=== PATIENT | male | born 1940 | race Caucasian/White ===

== ENCOUNTER → 2020-11-20 08:41 | Outpatient (BNVA) | payer MEDICARE, BC, SELFPAY | PROVIDERS: PCP Internal Medicine; Visit Provider Urology | DX: N40.1 Benign prostatic hyperplasia with lower urinary tract symptoms (principal); R35.1 Nocturia | CPT/HCPCS: 99212 ==

== ENCOUNTER → 2021-11-20 08:37 | Outpatient (BNVA) | payer MEDICARE, BC, SELFPAY | PROVIDERS: PCP Internal Medicine; Visit Provider Urology | DX: N40.1 Benign prostatic hyperplasia with lower urinary tract symptoms (principal); R35.1 Nocturia | CPT/HCPCS: 51798; 99212 ==

== ENCOUNTER 2022-11-16 10:59 | Outpatient (AMB) | payer MEDICARE, BC, SELFPAY ==
--- NOTE | 2022-11-16 11:11 | A.OFFVIS_ITS ---
Intake Intake Visit Reasons: 1Y PVR Intake Note: Patient is present for PVR Urology Med: Tamsulosin Antibiotic Allergy: Doxycycline, Levofloxacin Blood Thinner: None Pharmacy: [facility] PVR: 0ml Allergies doxycycline Allergy (Unknown, Verified 11/16/22 11:12) tendon weakness levofloxacin Adverse Reaction (Unknown, Verified 11/16/22 11:12) tendon weakness HPI HPI Comments History of Present Illness Details Daniele is a very pleasant male. He is a patient of Dr. Lux. He is seen for the following urologic condition. - lower urinary tract symptoms Continues with tamsulosin Does report nocturia with some tingling in his penis JASMINE boggy prostate Trial antibiotic Reports erectile dysfunction Trial tadalafil Lower urinary tract symptoms Primarily symptoms of weak stream and nocturia Stable on tamsulosin Prior history of laser prostatectomy Cystoscopy 10/21 normal bladder with open prostate PSA 09/22 1.0, 09/23 0.6 Continue with yearly follow-up PVR PFS Medical History BPH loc w urin obs/LUTS BPH w/o urinary obs/LUTS Frequency of urination and polyuria High cholesterol Nocturia Rectal pain Surgical History History of surgery Social History Patient Tobacco Use Status: Never used Tobacco Review of Systems Const Denies chills and Denies fever(s) Card Reports no additional complaints and Denies syncope Resp Denies cough GI Denies abdominal pain and Denies heartburn Reports as per HPI and Denies change in libido Neuro Denies syncope Psych Denies change in libido Endo Denies change in libido Physical Exam Const General: cooperative, healthy appearing, comfortable and no acute distress Orientation/consciousness: patient oriented x3 HEENT Face and sinus: Yes normal facial exam Mouth: moist mucous membranes Neck Neck: Yes normal visual inspection, Yes full ROM and Yes trachea midline Chest Chest palpation & inspection: normal inspection of the chest Resp Effort & Inspection: normal respiratory effort, able to speak in complete sentences and no respiratory distress GI Inspection: Yes normal to inspection Rectal Exam - Male: Yes normal sphincter tone and Yes prostate normal Male General Exam: Yes normal external exam Penis: normal penis and circumcised Meatus: meatus normal Scrotum: scrotum normal Testes: Testes normal Back/Spine/Pelvis Cervical Spine: normal cervical lordosis Thoracic/Lumbar Spine: thoracic and lumbar spine normal to inspection Skin General skin exam: no rashes or lesions noted Neuro General: patient oriented x3, gait normal, tone normal and moves all extremities Extrem General: Yes normal to inspection and Yes capillary refill normal Office Procedures Post Void Residual Post Residual Void Post Void Residual (PVR): 0 25255-Hgpw Void Residual by ultrasound Results AMB Urinalysis, Automated UA Leukoctes 0 Brad/uL Last Edit by Babita Danielle [facility] on 11/16/22 11:20 UA Nitrite Negative Last Edit by Babita Danielle [facility] on 11/16/22 11:20 UA Urobilinogen 0.2 mg/dL Last Edit by Babita Danielle [facility] on 11/16/22 11:2 0 UA Protein 0 mg/dL Last Edit by Babita Danielle [facility] on 11/16/22 11:20 UA pH 5.5 Last Edit by Babita Danielle [facility] on 11/16/22 11:20 UA Blood 0 Catarino/uL Last Edit by Babita Danielle [facility] on 11/16/22 11:20 UA Specific Dunbar 1.010 Last Edit by Babita Danielle [facility] on 11/16/22 11: 20 UA Ketone Negative Last Edit by Babita Danielle [facility] on 11/16/22 11:20 UA Bilirubin 0 mg/dL Last Edit by Babita Danielle [facility] on 11/16/22 11:20 UA Glucose 0 mg/dL Last Edit by Babita Danielle [facility] on 11/16/22 11:20 Assessment & Plan Assessment & Plan (1) Erectile dysfunction: Code(s): N52.9 - Male erectile dysfunction, unspecified (2) Prostatitis: Code(s): N41.9 - Inflammatory disease of prostate, unspecified (3) Nocturia: Code(s): R35.1 - Nocturia (4) BPH loc w urin obs/LUTS: Code(s): N40.1 - Benign prostatic hyperplasia with lower urinary tract symptoms Plan Two month follow-up Orders: Orders AMB Urinalysis Automated Today Z13.9 - Encounter for screening, unspecified AMB Post Void Residual by ultrasound Today N40.1 - Benign prostatic hyperplasia with lower urinary tract symptoms Medications: New sulfamethoxazole-trimethoprim 800-160 mg (Bactrim DS) 1 tab PO BID 14 days 28 tabs 0RF N39.0 - Urinary tract infection, site not specified, N41.9 - Inflammatory disease of prostate, unspecified tadalafil daily 5 mg PO DAILY 90 tabs 0RF sexual activity 90 days N52.9 - Male erectile dysfunction, unspecified Patient Instructions: Imaging studies, laboratory and physical exam results were discussed and reviewed in detail. No major barriers to patient understanding were identified. An opportunity to ask questions regarding the treatment plan was provided. All questions were answered. The patient expressed understanding and agreement with the above treatment plan. The patient is aware they should contact our office by phone for worsening of their current condition or the appearance of new urologic symptoms. Compliance is encouraged with any medications and followup testing that is ordered. It is a privilege to participate in the urologic care of your patient. If you h ave any questions or concerns regarding treatment for the above conditions, or other urologic issues, please do not hesitate to contact me. The office telephone contact is [phone]. This note is constructed using voice recognition software. While every effort has been made to ensure accuracy parakeet raiser errors may have been included. Yours sincerely, Dr Sung Gutierrez MD, [facility] - Urology Providers of Expert, Compassionate Care for the Genitourinary System Coding Level of Care Code Est Pt Level 4 (00594) Diagnoses Erectile dysfunction N52.9 Prostatitis N41.9 Nocturia R35.1 BPH loc w urin obs/LUTS N40.1 CPT Codes Post Residual Void - PVR CPT Code: 88197-Qofc Void Residual by ultrasound ([id number])
== END 2022-11-16 11:36 | disposition home or self-care (01) ==
PROVIDERS: Visit Provider Urology
DX: N52.9 Male erectile dysfunction, unspecified (principal); N41.9 Inflammatory disease of prostate, unspecified; N40.1 Benign prostatic hyperplasia with lower urinary tract symptoms; R35.1 Nocturia
CPT/HCPCS: 99214

== ENCOUNTER → 2022-11-16 10:59 | Outpatient (BNVA) | payer MEDICARE, BC, SELFPAY | PROVIDERS: Visit Provider Urology | DX: N40.1 Benign prostatic hyperplasia with lower urinary tract symptoms (principal); N13.8 Other obstructive and reflux uropathy; R35.1 Nocturia; N41.9 Inflammatory disease of prostate, unspecified; N52.9 Male erectile dysfunction, unspecified | CPT/HCPCS: 51798; 81003; 99212 ==

== ENCOUNTER 2023-01-14 08:32 | Outpatient (AMB) | payer MEDICARE, BC, SELFPAY ==
--- NOTE | 2023-01-14 08:38 | MHC.OFFVIS ---
Intake Intake Visit Reasons: 10 week follow up Intake Note: Patient is Present for Telephone Follow Up For Urology Med:TAMSULOSIN, TADALAFIL Antibiotic Allergy: DOXYCYCLINE, LEVOFLOXACIN Blood Thinner:NO [facility]aramcy:[facility] Allergies doxycycline Allergy (Unknown, Verified 01/14/23 08:40) tendon weakness levofloxacin Adverse Reaction (Unknown, Verified 01/14/23 08:40) tendon weakness Medication List - Last Reconciled 01/14/23 by Sung Gutierrez MD allopurinol 200 mg PO DAILY atorvastatin 80 mg PO DAILY gabapentin 600 mg PO TID metoprolol succinate ER 50 mg PO DAILY rosuvastatin 5 mg PO DAILY sacubitril-valsartan 49-51 mg (Entresto) 1 tab PO BID sulfamethoxazole-trimethoprim 800-160 mg (Bactrim DS) 1 tab PO BID 14 days tadalafil 5 mg PO DAILY 90 days tamsulosin 0.4 mg PO BEDTIME 90 days HPI HPI Comments History of Present Illness Details Daniele is a very pleasant male. He is a patient of Dr. Lux. He is seen for the following urologic condition. - lower urinary tract symptoms - erectile dysfunction [facility] Telemedicine Evaluation 15 min Consultation Unype Neymar Video attempted Has upcoming CT for elevated LFT's Erectile dysfunction Tadalafil 5mg daily Lower urinary tract symptoms Primarily symptoms of weak stream and nocturia Stable on tamsulosin - 7hr nocturia Prior history of laser prostatectomy Cystoscopy 10/21 normal bladder with open prostate PSA 09/22 1.0, 09/23 0.6 Continue with yearly follow-up PVR [facility] Medical History High cholesterol Nocturia Frequency of urination and polyuria BPH loc w urin obs/LUTS Rectal pain BPH w/o urinary obs/LUTS Surgical History History of surgery Social History Patient Tobacco Use Status: Never used Tobacco Review of Systems Const All systems reviewed & are unremarkable except as noted in HPI and below Reports no additional complaints Resp Reports no additional complaints GI Reports no additional complaints Reports as per HPI Musc Reports no additional complaints Physical Exam Telemedicine evaluation Appropriate responses Regular breathing rate and rhythm HEENT Head: Yes normal to inspection Ears: hearing grossly normal bilaterally Eyes General: appearance normal, both eyes and all related structures Neck Neck: Yes normal visual inspection Chest Chest palpation & inspection: normal inspection of the chest Resp Effort & Inspection: normal respiratory effort and able to speak in complete sentences Assessment & Plan Assessment & Plan (1) Prostatitis: Code(s): N41.9 - Inflammatory disease of prostate, unspecified Qualifiers: Prostatitis type: chronic Qualified Code(s): N41.1 - Chronic prostatitis (2) Erectile dysfunction: Code(s): N52.9 - Male erectile dysfunction, unspecified Qualifiers: 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 No major barriers to patient understanding were identified. An opportunity to ask questions regarding the treatment plan was provided. All questions were answered. The patient expressed understanding and agreement with the above treatment plan. The patient is aware they should contact our office by phone for worsening of their current condition or the appearance of new urologic symptoms. Compliance is encouraged with any medications and followup testing that is ordered. It is a privilege to participate in the urologic care of your patient. If you have any questions or concerns regarding treatment for the above conditions, or other urologic issues, please do not hesitate to contact me. The office telephone contact is [phone]. This note is constructed using voice recognition software. While every effort has been made to ensure accuracy environmental advisor errors may have been included. Yours sincerely, Dr Sung Gutierrez MD, 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
== END 2023-01-14 09:13 | disposition home or self-care (01) ==
LOC: HO.HUSH 08:32
PROVIDERS: PCP Internal Medicine; Visit Provider Urology
DX: N41.1 Chronic prostatitis (principal); N52.03 Combined arterial insufficiency and corporo-venous occlusive erectile dysfunction; N40.1 Benign prostatic hyperplasia with lower urinary tract symptoms
CPT/HCPCS: 99213

== ENCOUNTER → 2023-01-14 08:32 | Outpatient (BNVA) | payer MEDICARE, BC, SELFPAY | PROVIDERS: PCP Internal Medicine; Visit Provider Urology ==

== ENCOUNTER 2023-07-19 09:00 | Outpatient (AMB) | payer MEDICARE, BC, SELFPAY ==
--- NOTE | 2023-07-19 09:02 | MHC.OFFVIS ---
Intake Intake Visit Reasons: 6M PVR(Confirmed) Intake Note: Patient is Present for Follow Up Urology Medication: Tamsulosin, Tadalafil Antibiotic Allergies: Doxycycline, Levofloxacin Blood Thinners: PVR: 80 Allergies doxycycline Allergy (Unknown, Verified 01/14/23 08:40) tendon weakness levofloxacin Adverse Reaction (Unknown, Verified 01/14/23 08:40) tendon weakness Medication List - Last Reconciled 07/19/23 by Sung Gutierrez MD allopurinol 200 mg PO DAILY atorvastatin 80 mg PO DAILY gabapentin 600 mg PO TID metoprolol succinate ER 50 mg PO DAILY rosuvastatin 5 mg PO DAILY sacubitril-valsartan 49-51 mg (Entresto) 1 tab PO BID sulfamethoxazole-trimethoprim 800-160 mg (Bactrim DS) 1 tab PO BID 14 days tadalafil 5 mg PO DAILY 90 days tamsulosin 0.4 mg PO BEDTIME 90 days HPI HPI Comments History of Present Illness Details Daniele is a very pleasant male. He is a patient of Dr. Lux. He is seen for the following urologic condition. - lower urinary tract symptoms - erectile dysfunction [facility] Six-month follow-up PVR 0cc Refill medications Knee replacement 3 weeks ago Doing amazingly well Erectile dysfunction Tadalafil 5mg daily Lower urinary tract symptoms Primarily symptoms of weak stream and nocturia Stable on tamsulosin - 7hr nocturia Prior history of laser prostatectomy Cystoscopy 10/21 normal bladder with open prostate PSA 09/22 1.0, 09/23 0.6 Continue with yearly follow-up PVR PFS Medical History High cholesterol Nocturia Frequency of urination and polyuria BPH loc w urin obs/LUTS Rectal pain BPH w/o urinary obs/LUTS Surgical History History of surgery Social History Patient Tobacco Use Status: Never used Tobacco Review of Systems Const Denies chills and Denies fever(s) Card Reports no additional complaints and Denies syncope Resp Denies cough GI Denies abdominal pain and Denies heartburn Reports as per HPI and Denies change in libido Neuro Denies syncope Psych Denies change in libido Endo Denies change in libido Physical Exam Const General: cooperative, healthy appearing, comfortable and no acute distress Orientation/consciousness: patient oriented x3 HEENT Face and sinus: Yes normal facial exam Mouth: moist mucous membranes Neck Neck: Yes normal visual inspection, Yes full ROM and Yes trachea midline Chest Chest palpation & inspection: normal inspection of the chest Resp Effort & Inspection: normal respiratory effort, able to speak in complete sentences and no respiratory distress GI Inspection: Yes normal to inspection Back/Spine/Pelvis Cervical Spine: normal cervical lordosis Thoracic/Lumbar Spine: thoracic and lumbar spine normal to inspection Skin General skin exam: no rashes or lesions noted Neuro General: patient oriented x3, gait normal, tone normal and moves all extremities Extrem General: Yes normal to inspection and Yes capillary refill normal Office Procedures Post Void Residual Post Residual Void Post Void Residual (PVR): 80 [id number]-Bscv Void Residual by ultrasound Assessment & Plan Assessment & Plan (1) Erectile dysfunction: Code(s): N52.9 - Male erectile dysfunction, unspecified Qualifiers: 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 Qualified Code(s): 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 (2) BPH loc w urin obs/LUTS: Code(s): N40.1 - Benign prostatic hyperplasia with lower urinary tract symptoms Plan Twelve month follow-up PVR and PSA Orders: Orders AMB Post Void Residual by ultrasound Today N40.1 - Benign prostatic hyperplasia with lower urinary tract symptoms Prostate Specific Antigen 364 Days N40.1 - Benign prostatic hyperplasia with lower urinary tract symptoms Medications: Refilled tadalafil daily 5 mg PO DAILY 90 tabs 3RF sexual activity 90 days N52.9 - Male erectile dysfunction, unspecified tamsulosin 0.4 mg PO BEDTIME 90 caps 3RF 90 days N40.1 - Benign prostatic hyperplasia with lower urinary tract symptoms Patient Instructions: Imaging studies, laboratory and physical exam results were discussed and reviewed in detail. No major barriers to patient understanding were identified. An opportunity to ask questions regarding the treatment plan was provided. All questions were answered. The patient expressed understanding and agreement with the above treatment plan. The patient is aware they should contact our office by phone for worsening of their current condition or the appearance of new urologic symptoms. Compliance is encouraged with any medications and followup testing that is ordered. It is a privilege to participate in the urologic care of your patient. If you have any questions or concerns regarding treatment for the above conditions, or other urologic issues, please do not hesitate to contact me. The office telephone contact is [phone]. This note is constructed using voice recognition software. While every effort has been made to ensure accuracy natural resources instructor errors may have been included. 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
== END 2023-07-19 09:25 | disposition home or self-care (01) ==
LOC: HO.HUSH 09:00
PROVIDERS: PCP Internal Medicine; Visit Provider Urology
DX: N52.03 Combined arterial insufficiency and corporo-venous occlusive erectile dysfunction (principal); N40.1 Benign prostatic hyperplasia with lower urinary tract symptoms
CPT/HCPCS: 99213

== ENCOUNTER → 2023-07-19 09:00 | Outpatient (BNVA) | payer MEDICARE, BC, SELFPAY | PROVIDERS: PCP Internal Medicine; Visit Provider Urology | DX: N52.03 Combined arterial insufficiency and corporo-venous occlusive erectile dysfunction (principal); N40.1 Benign prostatic hyperplasia with lower urinary tract symptoms | CPT/HCPCS: 51798; 99212 ==

== ENCOUNTER 2024-07-17 08:42 | Outpatient (AMB) | payer MEDICARE, BC, SELFPAY ==
--- NOTE | 2024-07-17 08:45 | MHC.OFFVIS ---
Intake Visit Reasons: 1y/PSA/PVR Intake Note: Patient is Present for Follow Up Urology Medication: Tamsulosin, Tadalafil Antibiotic Allergies: Doxycycline, Levofloxacin Blood Thinners:NONE PVR: 80ML'S TODAY'S PVR:44ML'S Slitter And Rewinder Machine Operator Required: No Allergies doxycycline Allergy (Unknown, Verified 07/17/24 08:46) tendon weakness levofloxacin Adverse Reaction (Unknown, Verified 07/17/24 08:46) tendon weakness HPI Comments Details: Daniele is a very pleasant male. He is a patient of Dr. Lux. He is seen for the following urologic condition. - lower urinary tract symptoms - erectile dysfunction [facility] Yearly follow-up PVR 80 cc Refill medications Encouraged to take tadalafil 5 mg daily. This has benefit for bladder stabilization, cardiac improvement, as well as erectile benefit. Erectile dysfunction Tadalafil 5mg daily Lower urinary tract symptoms Primarily symptoms of weak stream and nocturia Stable on tamsulosin - 7hr nocturia Prior history of laser prostatectomy Cystoscopy 10/21 normal bladder with open prostate PSA 09/22 1.0, 09/23 0.6, 07/27 0.7 Continue with yearly follow-up PVR [facility] Medical History High cholesterol Nocturia Frequency of urination and polyuria BPH loc w urin obs/LUTS Rectal pain BPH w/o urinary obs/LUTS Surgical History History of surgery Social History Patient Tobacco Use Status: Never used Tobacco Review of Systems Const Denies chills and Denies fever(s) Card Reports no additional complaints and Denies syncope Resp Denies cough GI Denies abdominal pain and Denies heartburn Reports as per HPI and Denies change in libido Neuro Denies syncope Psych Denies change in libido Endo Denies change in libido Physical Exam Const General: cooperative, healthy appearing, comfortable and no acute distress Orientation/consciousness: patient oriented x3 HEENT Face and sinus: Yes normal facial exam Mouth: moist mucous membranes Neck Neck: Yes normal visual inspection, Yes full ROM and Yes trachea midline Chest Chest palpation & inspection: normal inspection of the chest Resp Effort & Inspection: normal respiratory effort, able to speak in complete sentences and no respiratory distress GI Inspection: Yes normal to inspection Back/Spine/Pelvis Cervical Spine: normal cervical lordosis Thoracic/Lumbar Spine: thoracic and lumbar spine normal to inspection Skin General skin exam: no rashes or lesions noted Neuro General: patient oriented x3, gait normal, tone normal and moves all extremities Extrem General: Yes normal to inspection and Yes capillary refill normal Office Procedures Post Void Residual Post Residual Void Post Void Residual (PVR): 44 [id number]-Gjmm Void Residual by ultrasound Assessment & Plan Assessment & Plan (1) Nocturia: Code(s): R35.1 - Nocturia Category: Medical (2) Erectile dysfunction: Code(s): N52.9 - Male erectile dysfunction, unspecified Category: Medical Qualifiers: 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 While every effort has been made to ensure accuracy heat treater errors may have been included. Imaging studies, laboratory and physical exam results were discussed and reviewed in detail. No major barriers to patient understanding were identified. An opportunity to ask questions regarding the treatment plan was provided. All questions were answered. The patient expressed understanding and agreement with the above treatment plan. The patient is aware they should contact our office by phone for worsening of their current condition or the appearance of new urologic symptoms. Compliance is encouraged with any medications and followup testing that is ordered. It is a privilege to participate in the urologic care of your patient. If you have any questions or concerns regarding treatment for the above conditions, or other urologic issues, please do not hesitate to contact me. The office telephone contact is [phone]. 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
--- OUTSIDE RECORDS SUMMARY | 2024-07-17 09:05 | XMS_ITS ---
Author Organization [facility], Address [address] [address] Care Team Providers Care Back Order Clerk Name Role Phone Nolvia Hernandez Unavailable [phone] REASON FOR VISIT NET APPLICATIONS DEVELOPER RT HIP, REF BY [facility], WILL BRING IMAGING Encounters Encounter Location Date Provider Diagnosis [facility], [address] [address] 10/28/2023 Nolvia Hernandez Plan Of Treatment No Information Progress Notes * TOMMY MESSINADOB:[birth year] (84 yo M)Acc No.[id number]:10/28/2023 Patient:?SIDDHARTH TOMMY Provider:?Nolvia Hernandez MD :1940???Age:83 Y???Sex:Male Amando e:10/28/2023 Address:[facility] [address] [id number] Subjective: * Chief Complaints: * ???1. NET APPLICATIONS DEVELOPER RT HIP, REF BY [facility], WILL BRING IMAGING. * Medical History:? Objective: * Vitals:? Assessment: Plan: * Treatment: * Billing Information: * Visit Code:? * Procedure Codes:? * Electronic signature of Nolvia Hernandez MD on 07/17/2024 at 09:04 AM EDT Sign off status: Pending * Provider:?Nolvia Hernandez MD Date:?10[birth year]28[birth year]19 24 Generated for Printi ng/Faxing/eTransmitting on:?07/17/2024 09:04 AM EDT
--- OUTSIDE RECORDS SUMMARY | 2024-07-17 09:05 | XMS_ITS | Patient Health Record ---
Author Organization [employer], Address [address] [facility] [address] [place] [address] Care Team Providers Care High Density Talc Coater Operator Name Role Phone Nolvia Hernandez Unavailable [phone] Reason For Referral No Information Plan Of Treatment No Information Insurance Providers Payer Name Payer Address Payer Phone Subscriber Number Group Number Insured Name Patient Relationship to Insured Coverage Start Date Coverage End Date [employer] [place] [id number] [address] [facility] [place] [id number] TOMMY MEDINA Self - patient is the insured [facility] [address] [place], [place] [phone] [id number] TOMMY MEDINA Self - patient is the insured
--- OUTSIDE RECORDS SUMMARY | 2024-07-17 09:05 | XMS_ITS | Continuity of Care Document ---
Author Name [facility] Organization [facility] Care Team Providers Care Manager Talent Management Name Role Phone [facility] Unavailable Unavailable Problems Combined list of problems from Department of Defense and Veterans Affairs facilities. It does not include entries that were removed or entered in error. Problem Status Onset Date Problem Type Date of Resolution Comments Source Atrial fibrillation Active 2021 Condition [facility] Restless legs Active 2021 Condition [facility] Coronary arteriosclerosis Active 2019 Condition [facility] Hypertension Active 2018 Condition [facility] Sleep apnea Active 2012 Condition [facility] Hypercholesterolemia Active 2002 Condition [facility] Back pain Active 1989 Condition [facility] Benign polyp of colon Active Condition [facility] 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 Dec 28, 2022 Entered By: PINKY BLOUNT Comment: 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) [facility] Gastroesophageal reflux disease Active Condition [facility] Gout Active Condition [facility] Head injury Active Condition [facility] Heart failure with reduced ejection fraction Active Condition [facility] Hyperplasia of prostate Active Condition Dec 28, 2022 Entered By: PINKY BLOUNT Comment: Hyperplasia of prostate with lower urinary tract symptoms (LUTS) [facility] Hypogonadotropic hypogonadism Active Condition [facility] Mitral regurgitation Active Condition [facility] Myopathy Active Condition [facility] Osteopenia Active Condition [facility] Pain [facility] left knee joint Active Condition [facility]ipheral neuropathy Active Condition [facility] Prostatitis Active Condition [facility] Spinal stenosis of lumbar region Active Condition [facility] Subclinical hypothyroidism Active Condition [facility] Diagnosis: ICD-10-CM R94.5 Abnormal results of liver function studies Active Diagnosis [facility] Allergies, Adverse Reactions, Alerts Combined list of allergies from Department of Defense and Veterans Affairs facilities. It does not include entries that were removed or entered in error. Substance Category Reaction Severity Reaction type Status Date Reported Comments Source LEVOFLOXACIN Propensity to adverse reactions to drug (finding) Finding of vomiting active 3 [facility] Immunizations Combined list of available immunizations from the Department of Defense and Veterans Affairs facilities. Immunization Series Date Given Administered By Site Reaction Lot Number CVX Code Drug State Historical Society Director Status Comments Source INFLUENZA, HIGH-DOSE, QUADRIVALENT 2022 BRANDEN GORMAN EDD M LEFT DELTO ID [id number] 197 complet ed [facility] [place] TDAP 2022 SHERIFBRANDEN GARDNER EDD M LEFT DELTO ID [id number] 115 complet ed [facility] [place] COVID-19 (Idea [employer]), MRNA, LNP-S, BIVALENT, PF, 30 MCG/0.3 ML DOSE 5 2021 300 complet ed HISTORICA L INFORMATI ON - FROM OTHER REGISTRY, Covid card Lot#: [id number] Mfr: [employer], [employer] [place] [facility] COVID-19 (Idea Shower), MRNA, LNP-S, PF, 30 MCG/0.3 ML DOSE 3 2021 208 complet ed HISTORICA L INFORMATI ON - FROM OTHER REGISTRY, Covic Card Lot#: [id number] Mfr: [employer] [facility] COVID-19 (Idea Shower), MRNA, LNP-S, PF, 30 MCG/0.3 ML DOSE 4 2021 208 complet ed HISTORICA L INFORMATI ON - FROM OTHER REGISTRY, Covid Card Lot#: [id number] Mfr: [employer] [facility] COVID-19 (PFIZER), MRNA, LNP-S, PF, 30 MCG/0.3 ML DOSE 2 2020 208 complet ed HISTORICA L INFORMATI ON - FROM OTHER REGISTRY, Covid Card Lot#: [id number] Mfr: [employer] [facility] COVID-19 (Idea Shower), MRNA, LNP-S, PF, 30 MCG/0.3 ML DOSE 1 2020 208 complet ed HISTORICA L INFORMATI ON - FROM OTHER REGISTRY, Covid card Lot#: [id number] Mfr: [employer] [facility] Results Combined list of recent chemistry, hematology and other laboratory results from Department of Defense and Veterans Affairs, ranging from 15 months to all on record, depending upon the facility. Order Name Results Value Reference Range Date Interpretation Specimen Comments Source PT & INR (PROTIME ) INR IN PLATELET POOR PLASMA BY COAGULATIO N ASSAY 1.3 03/03 Specimen Type: PLASMA No comment entered. Ordering Provider: MARGARET NEVES Report Released Date/Time: Jan 17, 2023 04:35 PM Reporting Lab: [facility] [place] [address] [address] Performing Lab: [place] [facility] [place] [address] [address] [facility] PT & INR (PROTIME ) PROTHROMBI N TIME (PT) 14.5 s 10.0 - 13.1 03/03 H Specimen Type: PLASMA No comment entered. Ordering Provider: MARGARET NEVES Report Released Date/Time: Jan 17, 2023 04:35 PM Reporting Lab: [facility] [place] [address] [address] Performing Lab: [facility] [address] [address] [facility] HEPATITI S B SURFACE ANTIGEN (HBsAg)- WH HEPATITIS B VIRUS SURFACE AG [PRESENCE] IN SERUM OR PLASMA BY IMMUNOASSA Y Non Reactive 03/03 Specimen Type: SERUM Comment: This test detects both IgG and IgM antibodies. A Reactive result ( Positive prior to 01/15/13) may indicate either current or previous hepatitis B infection. Antibodies to Hepatitis B Core may be the only marker of recent hepatitis B infection during the window period when Hepatitis B surface antigen has disappeared and Hepatitis B surface antibodies are not yet detectable. A Reactive result ( Positive prior to 01/15/13) is diagnostic of acute or chronic hepatitis B infection. The presence of Hepatitis B surface antigen is frequently associated with infectivity . Ordering Provider: MARGARET NEVES Report Released Date/Time: Jan 17, 2023 04:35 PM Reporting Lab: [address] [address] Performing Lab: [address] [address] [facility] HEPATITI S B CORE (Total) Ab HEPATITIS B VIRUS CORE AB [PRESENCE] IN SERUM OR PLASMA BY IMMUNOASSA Y Non Reactive 03/03 Specimen Type: SERUM Comment: This test detects both IgG and IgM antibodies. A Reactive result ( Positive prior to 01/15/13) may indicate either current or previous hepatitis B infection. Antibodies to Hepatitis B Core may be the only marker of recent hepatitis B infection during the window period when Hepatitis B surface antigen has disappeared and Hepatitis B surface antibodies are not yet detectable. A Reactive result ( Positive prior to 01/15/13) is diagnostic of acute or chronic hepatitis B infection. The presence of Hepatitis B surface antigen is frequently associated with infectivity . Ordering Provider: MARGARET NEVES Report Released Date/Time: Jan 17, 2023 04:35 PM Reporting Lab: [address] [address] Performing Lab: [address] [address] [facility] SURAJ SCREEN/T ITER NUCLEAR AB [PRESENCE] IN SERUM POS 03/03 Specimen Type: SERUM No comment entered. Ordering Provider: MARGARET NEVES Report Released Date/Time: Jan 17, 2023 04:35 PM Reporting Lab: [facility] [place] [facility] [address] [facility] [address] Performing Lab: [facility] [place] [facility] [address] [facility] [address] [facility] [place] [facility] SURAJ SCREEN/T ITER NUCLEAR AB [TITER] IN SERUM BY IMMUNOFLUO RESCENCE PERFORME D 03/03 Specimen Type: SERUM No comment entered. Ordering Provider: MARGARET NEVES Report Released Date/Time: Jan 17, 2023 04:35 PM Reporting Lab: [facility] [place] [facility] [address] [facility] [address] Performing Lab: [place] [facility] [place] [facility] [address] [facility] [address] [place] [facility] [place] [facility] SURAJ SCREEN/T ITER NUCLEOLAR NUCLEAR AB PATTERN [TITER] IN SERUM 1:40 03/03 Specimen Type: SERUM No comment entered. Ordering Provider: MARGARET NEVES Report Released Date/Time: Jan 17, 2023 04:35 PM Reporting Lab: [facility] [place] [facility] [address] [facility] [address] Performing Lab: [facility] [place] [facility] [address] [facility] [address] [place] [facility] [place] [facility] HEPATITI S C ANTIBODY (HCV)-AR C HEPATITIS C VIRUS AB [PRESENCE] IN SERUM NON-REAC TIVE 03/03 Specimen Type: SERUM Comment: Hep C Ab: No HCV antibody detected. If recent infection is suspected or other evidence suggests HCV infection, consider HCV nucleic acid testing Ordering Provider: MARGARET NEVES Report Released Date/Time: Jan 17, 2023 04:35 PM Reporting Lab: [facility] [place] [facility] [address] [facility] [address] Performing Lab: [facility] [address] [facility] [address] [facility] FERRITIN FERRITIN [MASS/VOLU ME] IN SERUM OR PLASMA 84 ng/mL 20 - 300 03/03 Specimen Type: SERUM No comment entered. Ordering Provider: MARGARET NEVES Report Released Date/Time: Jan 17, 2023 04:35 PM Reporting Lab: [facility] [address] [facility] [address] Performing Lab: [facility] [address] [facility] [address] [facility] IRON & TIBC PANEL IRON BINDING CAPACITY [MASS/VOLU ME] IN SERUM OR PLASMA 298 ug/dL 204 - 475 03/03 Specimen Type: SERUM No comment entered. Ordering Provider: MARGARET NEVES Report Released Date/Time: Jan 17, 2023 04:35 PM Reporting Lab: [facility] [address] [facility] [address] Performing Lab: [facility] [address] [facility] [address] [facility] [place] [facility] IRON & TIBC PANEL IRON [MASS/VOLU ME] IN SERUM OR PLASMA 50 ug/dL 40 - 160 03/03 Specimen Type: SERUM No comment entered. Ordering Provider: MARGARET NEVES Report Released Date/Time: Jan 17, 2023 04:35 PM Reporting Lab: [facility] [address] [facility] [address] Performing Lab: [facility] [address] [facility] [address] [facility] [place] [facility] IRON & TIBC PANEL IRON/IRON BINDING CAPACITY.T OTAL [MASS RATIO] IN SERUM OR PLASMA 16.8 20.0 - 50.0 03/03 L Specimen Type: SERUM No comment entered. Ordering Provider: MARGARET NEVES Report Released Date/Time: Jan 17, 2023 04:35 PM Reporting Lab: [facility] [address] [facility] [address] Performing Lab: [facility] [address] [facility] [address] [facility] GAMMA-GT P GAMMA GLUTAMYL TRANSFERAS E [ENZYMATIC ACTIVITY/V OLUME] IN SERUM OR PLASMA 34 U/L 10 - 65 03/03 Specimen Type: SERUM No comment entered. Ordering Provider: MARGARET NEVES Report Released Date/Time: Jan 17, 2023 04:35 PM Reporting Lab: [facility] [address] [facility] [address] Performing Lab: [facility] [address] [facility] [address] [facility] ALBUMIN ALBUMIN [MASS/VOLU ME] IN SERUM OR PLASMA 3.7 g/dL 3.5 - 5.0 03/03 Specimen Type: SERUM No comment entered. Ordering Provider: MARGARET NEVES Report Released Date/Time: Jan 17, 2023 04:35 PM Reporting Lab: [facility] [address] [facility] [address] Performing Lab: [facility] [address] [facility] [address] [facility] PROTEIN, TOTAL PROTEIN [MASS/VOLU ME] IN SERUM OR PLASMA 6.2 g/dL 6.0 - 8.3 03/03 Specimen Type: SERUM No comment entered. Ordering Provider: MARGARET NEVES Report Released Date/Time: Jan 17, 2023 04:35 PM Reporting Lab: [facility] [address] [facility] [address] Performing Lab: [facility] [address] [facility] [address] [facility] [place] [facility] Encounters Combined list of: 1) Encounters from Department of Veterans Affairs facilities going backup to the last 18 months, not all VA inpatient encounters are included; 2) Encounters from the Department of Defense facilities going backup to 280 months. Location Location Details Encounter Type Encounter Number Reason For Visit Attending Provider ADM Date DC Date Status Disposition Source [facility] O/P NEW MOD 45-59 MIN [id number] Diagnos is: ICD-10- CM R94.5 Abnorma l results of liver functio n studies HAL KIMBLE 03/03 [facility] [place] [facility] FEE [id number] Diagnos is: ICD-10- CM R94.5 Abnorma l results of liver functio n studies HAL KIMBLE 03/03 [facility] [place] [place] [facility] [place] [facility] Outpatient [facility]counter [id number] 06/02 [facility] [place] [place] [facility] [place] [facility] Outpatient [facility]counter [id number] 11/02 [facility] [place] [place] [facility] [place] [facility] Outpatient Encounter [id number] 11/03 [facility] [place] [place] [facility] Social History Combined list of available smoking, tobacco, and other social history from Department of Defense and Veterans Affairs facilities. Social History Type Response Date Comment Sourc e Tobacco smoking status [facility] NEVER USED 12/28/2022 [facility] [place] [facility]
--- OUTSIDE RECORDS SUMMARY | 2024-07-17 09:06 | XMS_ITS | Data Portability ---
Author Organization [place] - [facility], [facility] Address [address] [place] [address] Care Team Providers Care Principal Statistical Programmer Name Role Phone DRAKE ALFRED Referring Provider Assessment Encounter Date Assessment Date Assessment LastModified by Organization Details LastModified Time 10/25/2023 10/25/2023 Assessment: Adde d STM to right ITB today. Patient didn't tejas. greater than 20 reps with step ups fwd due to hip pain. Plan: Continue as per plan. [email or web address] Not available 10/25/2023 11:35:50 10/27/2023 10/27/2023 Assessment: Increased cords with shuttle today. No further therex due to right hip pain. Plan: Patient's been D/C at this time with a HEP. [email or web address] Not available 10/27/2023 11:34:28 11/15/2023 11/15/2023 I am seeing the patient today under the supervision of Dr. Mckinney who was available but who did not see the patient. HPI: Patient presents today complaining of right hip pain. We have treated him in the past for both trochanteric bursitis predominantly as well as underlying osteoarthritis. The patient recently received a trochanteric bursal injection with my colleague approximately 1 month ago. He states that he did not get very much benefit from this at all. He continues to have pain with any range of motion of the hip. He has difficulty ambulating for any length of time. He states that putting on socks and shoes has become unbearable due to the sharp stabbing sensations he feels about the lateral and posterior aspects of the hip. His hip is no longer tender to palpation along the side however he feels his pain with range of motion predominantly laterally. Past family, medical, social history and review of systems has been reviewed, updated and is located in the patient? s chart. The patient is well appearing and in no apparent distress. Alert and oriented x3. Gait is antalgic favoring the right side. Examination: right hip: Visual inspection reveals no swelling, ecchymosis or erythema about the hip. No tenderness to palpation about the hip. Hip range of motion limited with irritability during internal rotation and flexion. Strength 4/5. + MOLLY. + FADDIR. Negative scouring test. Negative Stinchfield. Neurovascular intact. Calf soft and nontender. X-rays ordered, obtained and reviewed at [facility] and lateral of the right hip reveal moderate joint space narrowing with slight osteophyte formation and subchondral sclerosis. No evidence of AVN, acute fracture or dislocation. No change with previous radiograph Impression: osteoarthritis, right hip, rule out avascular necrosis Plan: I explained the nature of the diagnosis with the patient and its treatment options both conservative and surgical. At this point in time I recommended obtaining an MRI to rule out avascular necrosis given the patient's significant uptick in symptoms. He has dealt with trochanteric bursal and hip osteoarthritis symptoms in the past however his source today seems to be more intra-articular. I did discuss meeting with Dr. Glass to discuss total hip arthroplasty. He would like to move forward with this if the MRI does confirm worsening of osteoarthritis or avascular necrosis. The patient understands and agrees with the plan. They know to call if they have any further questions or concerns regarding their symptoms, or to follow up sooner if needed. [email or web address] Not available 11/15/2023 12:18:49 12/29/2023 12/29/2023 History: The patient is approximately 3 months status post a right total knee arthroplasty and presents for routine follow-up per our request. Minimal pain. Taking occasional Tylenol. Other side done 6 months ago doing very well as well. Happy with results of both. Does feel easy fatigability and some weakness in his legs though. PMH/PSH/MEDS/ALL/ FMH/SOC HX/ROS all reviewed in detail per my medical intake sheet. ROS: The patient denies fevers, chills, neurovascular changes, history of trauma. Exam: Vitals signs as noted. Alert and oriented x3. Appears well and in no acute distress. Extremities: Incision is well-healed. Calves are soft and nontender. No evidence of DVT. No lower extremity edema. Neurovascular status at baseline. Range of motion is 0-125 bilaterally. Ligaments are stable to varus and valgus stresses. No significant effusion. Quad strength is 5/5 bilaterally X-rays: Radiographs were not obtained today. Assessment: The patient is doing well approximately 3 and 5 months s/p TKA. Plan: The patient will return to physical therapy for bilateral lower extremity strengthening and conditioning. A prescription was provided. He will also continue with a home exercise program for additional strengthening and conditioning. Otherwise, the patient will continue with activity as tolerated. The patient was advised to take occasional OTC acetaminophen or OTC NSAIDS for mild residual discomfort if they are not otherwise medically contraindicated. They are encouraged to discuss this with their PCPS. The potential benefits, risks, and side effects were explained at length.Total knee replacement activity precautions were reviewed. The need for antibiotic prophylaxis for dental visits was discussed. The patient will follow-up annually or sooner if there are any problems. [email or web address] Not available 12/30/2023 15:48:51 Plan of Treatment Reminders Order Date Submit Date Provider Last Modified By Organization Details Last Modified Time Details Appointments None recorded. Lab None recorded. Referral physical therapist referral - S/P RTKR 09/02/23, LTKR 06/24/23ROM, Strengtheni ng, Conditionin g, Gait Training Etc.STRENGT HENING, HIP STRETCHING AND STRENGTHENI NG 2023 024 [email or web address] Not available 4 09:56:46 Procedures None recorded. Surgeries None recorded. Imaging XR, hand, 3 or more view - 3v rt hand, solar sales rep, rm 118 2024 025 [facility], [address], [address], [place], [address], 5 15:07:41 electromyog carlos + nerve conduction study - Diagnosis: RUE EVALUATE BRACHIAL PLEXUS CARPAL AND CUBITAL TUNNELS AND CERVICAL RADICULOPAT HY, please schedule with or Dr.Marinez- Chung 2024 025 shannan [facility] [address], [place], [address], 5 15:07:41 XR, hip + pelvis, unilateral, 2 or 3 view - right hip room 210 2023 024 [facility], [address], [address], [place], [address], 4 15:52:39 MRI, hip, w/o contrast - mri right hip no contrast r/o AVN 2023 024 [facility] ([facility]), [address], [place], [address], 4 15:52:40 Medication Orders meloxicam 15 mg tablet 2024 025 [id number], [address], [place], [phone], 5 15:07:41 tramadol 50 mg tablet 2023 024 [id number], [address], [place], [phone], 4 13:18:41 Patient TargetsNo targets recorded. Patient Instructions Encounter Date Encounter Id Patient Instructions Last Modified By Organization Details Last Modified Time 10/25/2023 [id number] Short Term Goals (4 weeks): 1) Pain < 5/0 2) Initiate to HEP 3) Increase strength by 1/3 MMT grade where weak 4) Decrease swelling at the right knee 5) Increase ADL participation 6) Normalize gait mechanics with assistance 7) The patient will have 131 degrees of right knee flexion AAROM 8) The patient will have -1 degree of right knee extension PROM Treasury Agent Goals (8 weeks): 1) Pain < 3/10 2) The patient will have full 5/5 strength at the right knee with MMT 3) The patient will be able to ambulate community distances with WNL gait 4) The patient will be able to ascend/descend a flight of stairs reciprocally 5) Right VMO:VL contraction = 1.5:1 6) Transition to HEP 7) Independent with ADL? s and Home Responsibilities 8) The patient will have full right knee ROM with flexion and extension [email or web address] Not available 10/24/2023 10:20:15 10/27/2023 [id number] Short Term Goals (4 weeks): 1) Pain < 5/0 2) Initiate to HEP 3) Increase strength by 1/3 MMT grade where weak 4) Decrease swelling at the right knee 5) Increase ADL participation 6) Normalize gait mechanics with assistance 7) The patient will have 131 degrees of right knee flexion AAROM 8) The patient will have -1 degree of right knee extension PROM Senior Living Goals (8 weeks): 1) Pain < 3/10 2) The patient will have full 5/5 strength at the right knee with MMT 3) The patient will be able to ambulate community distances with WNL gait 4) The patient will be able to ascend/descend a flight of stairs reciprocally 5) Right VMO:VL contraction = 1.5:1 6) Transition to HEP 7) Independent with ADL? s and Home Responsibilities 8) The patient will have full right knee ROM with flexion and extension [email or web address] Not available 10/25/2023 12:05:12 Reason for Referral Physical Therapist Referral for History of total knee arthroplasty S/P RTKR 09/02/23, LTKR 06/24/23ROM, Strengthening, Conditioning, Gait Training Etc.STRENGTHENING, HIP STRETCHING AND STRENGTHENING Referring Physician: Jaskaran Glass, Orthopedic Surgery, [id number] Encounter Date: 12/29/2023 Results Created Date Observation Date Name Description Value Unit Range Abnormal Flag Note LastModifiedBy Organization Detail LastModifiedTime 11/15/19 24 11/15/2023 XR, hip + pelvi s, unila teral , 2 or 3 view [email or web address]:/ [email or web address] ?Encry pted=s hAaTro YD8dLq bEUv6g %2BXZw aYqtaq 0bqfl% 2Fg9IQ a4ajBk vP9nXo QUaueC m3YtLR FvZlgJ JJ8mAn HZtai3 3y9730 AC0KoY n%2BNV aXeUC8 mr84%3 D INTERFACE [facility] [address], [place], [address], 11/15/2023 09:34:17 11/15/19 24 11/15/2023 XR, hip + pelvi s, unila teral , 2 or 3 view [email or web address]:/ [email or web address] ?Encry pted=s hAaTro YD8dLq bEUv6g %2BXZw aYqtaq 0bqfl% 2Fg9IQ a4ajBk vP9nXo QUaueC m3YtLR FvZlgJ JJ8mAn HZtai3 6f3926 AC0KoY n%2BNV aXeUC8 mr84%3 D INTERFACE [facility] [address], [place], [address], 11/15/2023 09:34:19 12/02/19 24 09/14/2021 imagi ng/di agnos tic resul t No observ ation record ed. [email or web address] Not Available 11/04 02:57:28 12/02/19 24 03/31/2020 imagi ng/di agnos tic resul t No observ ation record ed. [email or web address] Not Available 11/04 02:57:58 12/06/19 24 12/02/2023 MRI, lower extre mity joint (s), w/o contr ast [facility] Access ion Number : [id number] Patien t Name: Daniele Aggarwal Record Number : [id number] Date of : 1939 Date of Exam: 2023 Referr ing Physic lino: Carissa Madera [address] [facility] [place] [address] Exam: MR Hip Unilat (C-) CPT 71777 - Right Room Descri ption: [address] CLINIC AL HISTOR Y: Deep joint pain partic ularly along the latera l side.. TECHNI QUE: MR of the right hip was perfor med withou t intrav enous contra st. COMPAR CHRIS: None. FINDIN GS: Mildly thicke oscar trabec ulated bladde r wall may be due to an elemen t of bladde r outlet obstru ction. No eviden ce of AVN, fractu re or marrow edema. Small right hip joint effusi on is likely reacti ve and relate d to mild right hip osteoa rthrit is. Mild right hip osteoa rthrit is with degene rative cleava ge tear in the anteri or-sup erior and superi or labrum . Mild diffus e chondr al thinni ng and irregu larity . Small right hip osteop hytes. Mild tendin opathy and perite ndinou s edema at the gluteu s medius and minimu s tendon insert ions. Mild tendin opathy at the hamstr ing tendon origin . IMPRES MARGRET: Mild right hip osteoa rthrit is. Small right hip joint effusi on is likely reacti ve Mild gluteu s medius and minimu s insert ional tendin opathy and perite ndinou s edema. Mild tendin opathy at the hamstr ing tendon origin . I, Cate Junior MD, have review ed the images and report and concur with the reside jean, Danelle masterson, jun gs. Electr onical ly Signed By: Cate Junior MD [email or web address] [facility] ([facility]) [address], [place], [address], 12/14/2023 07:28:16 06/12/19 25 06/11/2024 XR, hand, 3 or more view http:/ [email or web address] ?Encry pted=s hAaTro YD8dLq bEUv6g %2BXZw aYqtaq 0bqfl% 2Fg9IQ a4ajBk vP9nXo QUaueC m3YtLR FvZlgJ JJ8mAn HZtai3 3x7654 AC0Kqb XSMU6S kKiQtr MwF INTERFACE [facility] [address], [place], [address], 06/11/2024 14:14:39 06/12/19 25 06/11/2024 XR, hand, 3 or more view [email or web address] ?Encry pted=s hAaTro YD8dLq bEUv6g %2BXZw aYqtaq 0bqfl% 2Fg9IQ a4ajBk vP9nXo QUaueC m3YtLR FvZlgJ JJ8mAn HZtai3 9t1382 AC0Kqb XSMU6S kKiQtr MwF INTERFACE [facility] [address], [place], [address], 06/11/2024 14:14:42 Result Notes None recorded. Problems Name Problem SNOMED Code Status Onset Date Resolution Date Notes Provider Name and Address Organization Details Recorded Time No complaint s 498730266 Active Status: 'I'; Not Available Replaced by [facility] 4 09:16:45 Trochante gerard bursitis of right hip [id number] 100 Active 2023 Danny Villalobos PA-C [address], [place], [address] , [facility], [facility] 4 10:39:00 Removal of dressing Active 2017 Problem Code: Z48.01; Problem Code Type: ICD-10; Status: 'A'; Not Available Replaced by [facility] 4 11:29:16 Problem Notes None recorded. Procedures Surgical History Date Name Laterality Status Provider Name and Address Organization Details Recorded Time 4 14128 Therapeutic Exercise (1:1) completed Osmel Reddy PTA [address], [place], [address], [facility], [facility] 10/12/2023 15:34:32 4 [id number] Therapeutic Exercise (1:1) completed Osmel Reddy PTA [address], [place], [address], [facility], [facility] 10/10/2023 15:31:48 4 67751 Therapeutic Exercise (1:1) completed Osmel Reddy TELEVISION HOST [address], [place], [address], [facility], [facility] 10/05/2023 15:44:45 4 20128 Therapeutic Exercise (1:1) completed Osmel Reddy, TELEVISION HOST [address], [place], [address], [facility], [facility] 09/30/2023 15:25:46 4 JZHip Inj completed Danny Villalobos PA-C [address], [place], [address], [facility], [facility] 10/03/2023 10:38:35 4 [id number] Therapeutic Exercise (1:1) completed Corey Charles, PT [address], [place], [address], [facility], [facility] 09/26/2023 18:49:27 4 [id number] Therapeutic Exercise (1:1) completed Corey Charles, PT [address], [place], [address], [facility], [facility] 09/22/2023 13:06:04 4 [id number] Therapeutic Exercise (1:1) completed Corey Charles PT [address], [place], [address], [facility], [facility] 09/22/2023 11:33:37 4 [id number] Therapeutic Exercise (1:1) completed Osmel Reddy TELEVISION HOST [address], [place], [address], [facility], [facility] 09/19/2023 11:38:19 4 [id number] Therapeutic Exercise (1:1) completed Osmel Reddy, TELEVISION HOST [address], [place], [address], [facility], [facility] 09/15/2023 10:43:48 4 [id number] Therapeutic Exercise (1:1) completed Corey Charles, PT [address], [place], [address], [facility], [facility] 09/12/2023 15:02:09 4 71770: Low complexity PT Eval completed Corey Charles, PT [address], [place], [address], [facility], [facility] 09/12/2023 15:02:13 4 G8417 BMI Above Upper Parameters, F/U Documented completed Corey Charles, PT [address], [place], [address], [facility], [facility] 09/12/2023 15:04:29 4 G8428 Current Meds NOT Documented Reason Not Specified completed Corey Charles, PT [address], [place], [address], [facility], [facility] 09/12/2023 15:30:56 4 [id number] Therapeutic Exercise (1:1) completed Osmel Reddy, TELEVISION HOST [address], [place], [address], [facility], [facility] 08/10/2023 11:02:14 4 [id number] Therapeutic Exercise (1:1) completed Osmel Reddy, TELEVISION HOST [address], [place], [address], [facility], [facility] 08/05/2023 13:12:33 4 [id number] Therapeutic Exercise (1:1) completed Corey Charles, PT [address], [place], [address], [facility], [facility] 08/02/2023 15:00:55 4 11681 Therapeutic Exercise (1:1) completed Corey Charles, PT [address], [place], [address], [facility], [facility] 08/02/2023 10:36:55 4 56124 Therapeutic Exercise (1:1) completed Corey Charles, PT [address], [place], [address], [facility] 07/28/2023 11:05:02 4 89323 Therapeutic Exercise (1:1) completed Corey Charles, PT [address], [place], [address], [facility], [facility] 07/22/2023 13:06:00 4 [id number] Therapeutic Exercise (1:1) completed Yamilka Jefferyk, TELEVISION HOST [address], [place], [address], [facility] 07/20/2023 12:56:41 4 [id number] Therapeutic Exercise (1:1) completed Yamilka Jefferyk, TELEVISION HOST [address], [place], [address], [facility], [facility] 07/18/2023 10:57:45 4 [id number] Therapeutic Exercise (1:1) completed Yamilka Wen, TELEVISION HOST [address], [place], [address], [facility] 07/13/2023 17:35:06 4 53038 Therapeutic Exercise (1:1) completed Yamilka Wen, TELEVISION HOST [address], [place], [address], [facility], [facility] 07/11/2023 11:26:06 4 98137 Therapeutic Exercise (1:1) completed Corey Charles, PT [address], [place], [address], [facility], [facility] 07/07/2023 10:56:09 4 61256 Therapeutic Exercise (1:1) completed Corey Charles, PT [address], [place], [address], [facility], [facility] 07/04/2023 15:31:43 4 54327: Low complexity PT Eval completed Corey Charles, PT [address], [place], [address], [place] [facility] 07/04/2023 15:31:49 4 G8417 BMI Above Upper Parameters, F/U Documented completed Corey Charles, PT [address], [place], [address], [place] [facility] 07/01/2023 08:53:42 4 G8428 Current Meds NOT Documented Reason Not Specified completed Corey Charles, PT [address], [place], [address], [facility] - [facility] 07/04/2023 18:56:29 Imaging Results Imaging Date Name Status LastModified by Organiz ation Details LastModified Time 11/15/2023 XR, hip + pelvis, unilateral, 2 or 3 view completed INTERFACE [facility] [address], [place], [address], 11/15/2023 09:34:17 11/15/2023 XR, hip + pelvis, unilateral, 2 or 3 view completed [facility] [address], [place], [address], 11/15/2023 09:34:19 09/14/2021 imaging/diagno stic result completed Information not available 12/02/2023 02:57:28 03/31/2020 imaging/diagno stic result completed Information not available 12/02/2023 02:57:58 12/02/2023 MRI, lower extremity joint(s), w/o contrast completed [email or web address] [facility] ([facility]) [address], [place], [address], 12/14/2023 07:28:16 06/11/2024 XR, hand, 3 or more view completed INTERFACE [facility] [address], [place], [address], 06/11/2024 14:14:39 06/11/2024 XR, hand, 3 or more view completed INTERFACE [facility] [address], [place], [address], 06/11/2024 14:14:42 Procedure Notes None recorded. Medical Equipment None Reported. Allergies No known drug allergies Medications Name Sig Start Date Stop Date Status Note LastModified by Organization Details LastModified Time celecoxib 200 mg capsule TAKE 1 CAPSULE BY MOUTH EVERY DAY. MEDICATIO N TO BE STARTED 3 DAYS PRIOR TO SURGERY 11/14 completed Not Available Not Available Not Available amoxicillin 500 mg capsule 4 pills 1 hour prior to procedure 11/14 completed Not Available Not Available Not Available atorvastati n 80 mg tablet TAKE 1 TABLET BY MOUTH DAILY active Not Available Not Available No t Available gabapentin 600 mg tablet TAKE 1 TABLET BY MOUTH THREE TIMES DAILY active Not Available Not Available No t Available trazodone 50 mg tablet TAKE 1/2 TABLET BY MOUTH DAILY AT BEDTIME 11/14 completed Not Available Not Available Not Available tizanidine 4 mg tablet 11/14 completed Not Available Not Available Not Available meloxicam 15 mg tablet TAKE 1 TABLET BY MOUTH EVERY DAY active Not Available Not Available No t Available metoprolol succinate ER 100 mg tablet,exte nded release 24 hr TAKE 1/2 TABLET BY MOUTH TWICE DAILY active Not Available Not Available No t Available allopurinol 100 mg tablet TAKE 2 TABLETS BY MOUTH DAILY active Not Available Not Available No t Available sulfamethox azole 800 mg-trimetho prim 160 mg tablet TAKE 1 TABLET BY MOUTH TWICE DAILY FOR 14 DAYS 11/14 completed Not Available Not Available Not Available tramadol 50 mg tablet TAKE 1 TO 2 TABLETS BY MOUTH EVERY 6 HOURS NEEDED FOR PAIN 12/28 completed Not Available Not Available Not Available amoxicillin 500 mg tablet active Not Available Not Available Not Available prednisolon e acetate 1 % eye drops,suspe nsion SHAKE LIQUID AND INSTILL 1 DROP IN RIGHT EYE FOUR TIMES DAILY DIRECTED 12/28 completed Not Available Not Available Not Available tamsulosin 0.4 mg capsule TAKE 1 CAPSULE BY MOUTH DAILY active Not Available Not Available No t Available pantoprazol e 40 mg tablet,brook yed release TAKE 1 TABLET BY MOUTH EVERY DAY 11/14 completed Not Available Not Available Not Available pseudoephed rine-guaife nesin ER 80-700 mg tablet,exte nded release Percocet 5-325MG Tablet 1-2 Q 4-6 Hours Prn 06/02 completed Statu s: 'Disc ontin ued'; Not Available Not Available Not Available docusate sodium 100 mg capsule TAKE ONE CAPSULE BY MOUTH TWICE DAILY DIRECTED. MEDICATIO N TO BE STARTED AFTER SURGERY 11/14 completed Not Available Not Available Not Available furosemide 20 mg tablet TAKE 1 TABLET BY MOUTH DAILY active Not Available Not Available No t Available albuterol sulfate HFA 90 mcg/actuati on aerosol inhaler INHALE 2 PUFFS INTO THE LUNGS FOUR TIMES DAILY NEEDED FOR WHEEZING active Not Available Not Available No t Available oxycodone 5 mg tablet TAKE 1 TO 2 TABLETS BY MOUTH EVERY 4 HOURS NEEDED FOR SEVERE PAIN 11/14 completed Not Available Not Available Not Available doxycycline hyclate 100 mg tablet,brook yed release TAKE 1 TABLET BY MOUTH TWICE DAILY FOR 7 DAYS 11/14 completed Not Available Not Available Not Available oxycodone HCl-oxycodo ne-ASA 1Q 4-[address] WHILE ON THIS MEDICATIO N 06/02 completed Statu s: 'Disc ontin ued'; Not Available Not Available Not Available Eliquis 5 mg tablet TAKE 1 TABLET BY MOUTH TWICE DAILY active Not Available Not Available No t Available Eliquis 2.5 mg tablet TAKE 1 TABLET BY MOUTH TWO TIMES A DAY FOR 7 DAYS POST OPERATIVE LY, THEN RESUME HOME DOSE 12/28 completed Not Available Not Available Not Available Entresto 49 mg-51 mg tablet TAKE 1 TABLET BY MOUTH TWICE DAILY active Not Available Not Available No t Available BinaxNOW COVID-19 Ag Self Test kit TEST DIRECTED TODAY 11/14 completed Not Available Not Available Not Available Tyrvaya 0.03 mg/spray nasal spray INSTILL 1 SPRAY into each nostril TWICE DAILY 12/28 completed Not Available Not Available Not Available Vitals Date Recorded Body height Body mass index (BMI) Body weight Provider Name and Address Organization Details Last Updated DateTime 11/15/2023 175.26 cm 30.1 kg/m2 85830.84 g KAYLIA L'HEUREUX [place] [facility] 11/15/2023 08:49:11 Date Recorded Body height Body mass index (BMI) Body weight Provider Name and Address Organization Details Last Updated DateTime 12/29/2023 172.72 cm 30.4 kg/m2 01498.47 g ALPHONSO ALVARADO [facility] 12/29/2023 13:17:25 Date Recorded Body height Body mass index (BMI) Body weight Provider Name and Address Organization Details Last Updated DateTime 06/11/2024 172.72 cm 30.4 kg/m2 12688.47 g CORINE MORRELLO [facility] 06/11/2024 13:52:52 Social History Question Answer Notes LastModified by Organizat ion Details LastModified Time Tobacco Smoking Status Never Smoker CARLOS salazar [facility] 11/15/2023 08:51:01 What Is Your Level Of Alcohol Consumption? None Information not available 11/15/2023 What Is Your Relationship Status? Information not available 11/15/2023 Do You Use Any Illicit Or Recreational Drugs? No Information not available 11/15/2023 Do You Or Have You Ever Used Any Other Forms Of Tobacco Or Nicotine? No Information not available 11/15/2023 Sex: Unknown Functional Status None recorded. Mental Status None recorded. Family History Nothing Reported. Medical History Condition Response Allergies/Hayfever N Coronary Artery Disease N Anxiety/Depression N Breathing or lung disorders N Emphysema N Nerve Disorders N Thyroid Problems N COPD N Pacemaker N Anemia N Kidney/Bladder Problems N Vascular Disease N Heart Trouble N Heart Attack ([place]) N Gastrointestinal Disease N Cholesterol N Diabetes N Autoimmune disease N Bleeding Disorder N Orthotics N Arthritis N Seizures/Epilepsy N Blood Clot N AIDS/HIV N Congestive Heart Failure (CHF) N Acid Reflux (GERD) N Cancer N Stroke N Asthma N Circulation Problems N Peripheral Vascular Disease N Sleep Apnea N Hepatitis N Heart Disease N Rheumatoid Arthritis N Arrhythmia N Pulmonary Embolism N Headaches N Fibromyalgia N Hypertension N Osteoporosis N Past Encounters Encounter ID Performer Location Encounter Start Date Encounter Closed Date Diagnosis/Indication Diagnosis SNOMED-CT Code Diagnosis ICD10 Code Diagnosis Note [id number] MD Sravani Carrero PT [address] [place] [address] 07/04/2023 15:09:11 07/04/2023 15:43:30 History of arthroplasty of left knee 7818599139 357802 Z96.652 Aftercare 555871061 Z47. 1 [id number] Corey Charles, PT [facility] [address] [place] [address] 07/07/2023 10:19:00 07/07/2023 11:30:28 History of arthroplasty of left knee 3472487672 061029 Z96.652 Aftercare [id number] Z47. 1 [id number] [facility] [address] [place] [address] 07/08/2023 12:49:56 07/08/2023 14:22:28 Aftercare 681742227 Z51.89 History of left total knee replacement 9694833520 648264 Z96.492 [id number] Ana Baron, PT [facility] [address] [place] [address] 07/11/2023 10:22:42 07/11/2023 11:09:37 History of arthroplasty of left knee 5704454163 200343 Z96.652 Aftercare [id number] Z47. 1 [id number] Corey Charles, PT [facility] [address] [place] [address] 07/13/2023 16:57:30 07/13/2023 17:52:27 History of arthroplasty of left knee 3680042471 357897 Z96.652 Aftercare [id number] Z47. 1 [id number] Corey Charles, PT [facility] [address] [place] [address] 07/18/2023 10:26:09 07/18/2023 10:53:19 History of arthroplasty of left knee 8991405925 301349 Z96.652 Aftercare [id number] Z47. 1 [id number] Corey Charles, PT [facility] [address] [place] [address] 07/20/2023 12:15:51 07/20/2023 12:58:38 History of arthroplasty of left knee 2268208512 667615 Z96.652 Aftercare [id number] Z47. 1 [id number] Corey Charles, PT [facility] [address] [facility] [place] [address] 07/26/2023 10:24:58 07/26/2023 11:35:19 History of arthroplasty of left knee 1623696701 277614 Z96.652 Aftercare [id number] Z47. 1 [id number] Emma Goel PA-C [facility] [address] [place] [address] 07/22/2023 13:06:14 08/13/2023 08:02:59 Postoperative visit 976923862 Z48.89 Knee joint prosthesis present 7881650189 02 Z96.458 [id number] Corey Charles PT [facility] [address] [place] [address] 07/28/2023 10:20:02 07/28/2023 11:04:00 History of arthroplasty of left knee 0450255261 954075 Z96.652 Aftercare [id number] Z47. 1 [id number] Corey Charles, TIESHA [facility] PT [address] [facility] [place] [address] 08/02/2023 09:53:18 08/02/2023 10:46:54 History of arthroplasty of left knee 7924160123 126540 Z96.652 Aftercare 050610215 Z47. 1 [id number] MD Ana Carrero PT [address] [facility] [place] [address] 08/04/2023 09:53:21 08/04/2023 10:39:22 History of arthroplasty of left knee 7967249503 797882 Z96.652 Aftercare [id number] Z47. 1 [id number] Max Madera PA-C [facility] [address] [place] [address] 08/04/2023 16:26:43 08/24/2023 11:33:39 History of left total knee replacement 9453493268 953863 Z96.907 [id number] Corey Charles, PT [facility] [address] [place] [address] 08/08/2023 10:13:44 08/08/2023 10:58:02 History of arthroplasty of left knee 7200574102 349562 Z96.652 Aftercare 382292723 Z47. 1 [id number] Corey Charles, PT [facility] [address] [place] [address] 08/10/2023 10:16:33 08/10/2023 11:02:44 History of arthroplasty of left knee 4712153681 588619 Z96.652 Aftercare [id number] Z47. 1 [id number] Rivera Chino, ALEXEY [place] [address] [place] [address] 08/22/2023 07:42:08 09/13/2023 04:09:23 [id number] Jaskaran Glass MD [facility] [address] [place] [address] 09/12/2023 14:52:47 09/12/2023 16:03:45 History of total knee arthroplasty 4460393320 105 Z96.651 Aftercare [id number] Z47. 1 [id number] Corey Charles, PT [facility] [address] [place] [address] 09/15/2023 09:14:35 09/15/2023 10:01:57 History of total knee arthroplasty 8574521628 105 Z96.651 Aftercare [id number] Z47. 1 [id number] Corey Charles, PT [facility] [address] [place] [address] 09/19/2023 10:24:17 09/19/2023 11:28:30 History of total knee arthroplasty 8860966146 105 Z96.651 Aftercare [id number] Z47. 1 [id number] Chung Man PA-C [facility] [address] [place] [address] 09/16/2023 13:29:31 10/10/2023 09:57:27 History of right total knee replacement 7922822019 081029 Z96.468 [id number] Corey Charles, PT [facility] [address] [facility] [place] [address] 09/22/2023 11:21:32 09/22/2023 11:45:01 History of total knee arthroplasty 3098012060 105 Z96.[facility] Aftercare [id number] Z47. 1 [id number] Corey Charles, PT [facility] [address] [place] [address] 09/26/2023 11:22:09 09/26/2023 11:56:18 History of total knee arthroplasty 2226784093 105 [facility] Aftercare [id number] Z47. 1 [id number] Corey Charles, PT [facility] [address] [place] [address] 09/28/2023 11:11:36 09/28/2023 11:52:26 History of total knee arthroplasty 8751476700 105 [facility] Aftercare 855979932 Z47. 1 [id number] MICKY Johnson 3rd floor [address] [place] [address] 10/03/2023 10:16:13 10/31/2023 12:54:32 Implantation of joint prosthesis 64264369 Z47.1 Knee joint prosthesis present 7182254002 02 96.659 Aftercare 974044925 Z51. 89 Trochanter ic bursitis of right hip 7600774128 26784 M70.61 [id number] Corey Charles, PT [facility] [address] [place] [address] 10/03/2023 12:53:43 10/03/2023 13:23:24 History of total knee arthroplasty 7489623236 105 96.1 Aftercare [id number] Z47. 1 [id number] Ana Baron, PT [facility] [address] [place] [address] 10/07/2023 14:48:38 10/07/2023 16:20:34 History of total knee arthroplasty 8961717811 105 Z96.651 Aftercare [id number] Z47. 1 [id number] Corey Melvin, PT [facility] [address] [place] [address] 10/11/2023 11:33:12 10/11/2023 11:52:10 History of total knee arthroplasty 3361677755 105 Z96.651 Aftercare [id number] Z47. 1 [id number] Corey Melvin, PT [facility] [address] [place] [address] 10/13/2023 10:17:08 10/13/2023 10:35:20 History of total knee arthroplasty 5385871473 105 Z96.651 Aftercare [id number] Z47. 1 [id number] Corey Charles, PT [facility] [address] [place] [address] 10/18/2023 10:25:54 10/18/2023 10:49:32 History of total knee arthroplasty 5266045343 105 Z96.651 Aftercare [id number] Z47. 1 [id number] Corey Charles, PT [facility] [address] [place] [address] 10/20/2023 10:17:43 10/20/2023 10:55:21 History of total knee arthroplasty 5468649606 105 Z96.651 Aftercare [id number] Z47. 1 [id number] Corey Charles, PT [facility] [address] [place] [address] 10/25/2023 10:21:11 10/25/2023 11:02:03 History of total knee arthroplasty 2087360077 105 Z96.651 Aftercare [id number] Z47. 1 [id number] Corey Charles, PT [facility] [address] [place] [address] 10/27/2023 10:19:00 10/27/2023 10:54:25 History of total knee arthroplasty 1186608591 105 Z96.651 Aftercare [id number] Z47. 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 1599382007 30327 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 5820326229 G56.21 Health Concerns Section Related Observation LastModified by Organization Detai ls LastModified Time None Recorded Concern Status LastModified by Organization Details LastModified Time None Recorded Advance Directives Directive None Recorded Payers Encounter Date Sequence Insurance Name Policy Number Policy Baeza Covered Member ID Baeza Member ID Guarantor Name 10/25/2023 1 [place]IC[place]: [employer] Daniele Mckeon Jr [id number] 2 Daniele Mckeon 10/25/2023 2 [facility]: [employer]EE PROGRAM 113 Daniele Mckeon Jr [id number] Daniele Mckeon 10/27/2023 1 MEDICARE [place]: [employer] Daniele Mckeon Jr [id number] 2 Daniele Mckeon 10/27/2023 2 [place] [employer] [place] 113 Daniele Mckeon Jr [id number] Daniele Mckeon 11/15/2023 1 MEDIC[place]: [employer] Daniele Mckeon Jr [id number] 2 Daniele Mckeon 11/15/2023 2 [place]: [employer] [place]EE [place]GRAM (PPO) 33C Daniele Mckeon Jr [id number] Daniele Gaines Mike 12/29/2023 1 MEDICARE B-[place]: [employer] Daniele Pinoki [id number] 2 Daniele Gaines Mike 12/29/2023 2 [place] 33C Daniele Pinoki [id number] Daniele Gaines Mike 06/11/2024 1 MEDICARE [place]: NATIONAL [facility] Daniele Gaines Mike [id number] 2 Daniele Gaines Mike 06/11/2024 2 [place] 33C Daniele Gaines Mike [id number] Daniele Gaines Mike Notes Date Note Type Note Provider Name and Address Organization Details Recorded Time 10/25/2023 text/html Pt reports that he put his hand up to his right hip last night, and he states that it felt hot and was burning. He states that he hasn't had any problems with the knee since last visit. Corey Charles, PT [address] [place] [address], [place], [address], [facility] [place] [facility] 10/25/2023 11:39:30 10/27/2023 text/html Pt reports that his knee's been a 3-4/10 at worst today. Corey Charles, PT [address], [place], [address], [facility] [place] [facility] 10/27/2023 11:34:52 06/11/2024 text/html Diagnosis: Peripheral nerve irritation right upper extremity 84-year-old male who presents with numbness tingling and pain in his right upper extremity. This is most focused on the ring and small fingers. He has no history of trauma or other inciting event he has been using a night splint. Past family, medical, social history and review of systems has been reviewed, updated and is located in the patient? s chart. Examination: Healthy appearing patient in no apparent distress. Alert and oriented. He has symmetric range of motion of his bilateral wrist and digits. Provocative testing of wrist and digits reveal no instability. Carpal tunnel compression testing and Phalen's maneuver negative bilaterally. Elbow flexion testing and cubital tunnel compression testing are negative bilaterally. No atrophy in either upper extremity. Brisk capillary refill in all digits X-rays ordered, obtained, and reviewed today at [facility]: PA, lateral, oblique views of the right hand reveal some diffuse osteoarthritis. Plan: The patient and I discussed the situation at length. The patient's history and physical examination are consistent with a peripheral nerve irritation. I would like to obtain an EMG/NCS to confirm the diagnosis and get a sense of its severity and location. The patient will follow-up with me after the study has been obtained. I have also given of a prescription for meloxicam to help treat his pain. Rudi Sexton MD [address] [place] [address] [address], [place], [address], [facility] 06/13/2024 12:33:02
== END 2024-07-17 09:12 | disposition home or self-care (01) ==
LOC: HO.HUSH 08:42
PROVIDERS: PCP Internal Medicine; Visit Provider Urology
DX: N40.1 Benign prostatic hyperplasia with lower urinary tract symptoms (principal); R35.1 Nocturia; N52.03 Combined arterial insufficiency and corporo-venous occlusive erectile dysfunction
CPT/HCPCS: 99214; G2211

== ENCOUNTER → 2024-07-17 08:42 | Outpatient (BNVA) | payer MEDICARE, BC, SELFPAY | PROVIDERS: PCP Internal Medicine; Visit Provider Urology | DX: N40.1 Benign prostatic hyperplasia with lower urinary tract symptoms (principal); N52.03 Combined arterial insufficiency and corporo-venous occlusive erectile dysfunction; R35.1 Nocturia | CPT/HCPCS: 51798; 99212 ==

== ENCOUNTER 2025-03-12 09:26 | Outpatient (AMB) | payer MEDICARE, BC, SELFPAY ==
--- NOTE | 2025-03-12 10:01 | MHC.OFFVIS ---
Intake Visit Reasons: US f/u SET/ UA Intake Note: Patient is Present for Follow Up Urology Medication: Tamsulosin, Tadalafil Antibiotic Allergies: Doxycycline, Levofloxacin Blood Thinners:NONE Imaging : Renal US 11/19/24 TODAY'S PVR:125ML'S Fish Checker Required: No Accompanied by: Self / Same As Patient Allergies doxycycline Allergy (Unknown, Verified 03/12/25 10:02) tendon weakness levofloxacin Adverse Reaction (Unknown, Verified 03/12/25 10:02) tendon weakness HPI Comments Details: Daniele is a very pleasant male. He is a patient of Dr. Lux. He is seen for the following urologic condition. - lower urinary tract symptoms - erectile dysfunction [facility] doctor Six-month follow-up PVR 125 cc Refill medications - tamsulosin and tadalafil Encouraged to take tadalafil 5 mg daily. This has benefit for bladder stabilization, cardiac improvement, as well as erectile benefit. Add 20 mg on demand tadalafil Erectile dysfunction Tadalafil 5mg daily Lower urinary tract symptoms Primarily symptoms of weak stream and nocturia Stable on tamsulosin - 7hr nocturia Prior history of laser prostatectomy Cystoscopy 10/21 normal bladder with open prostate PSA 09/22 1.0, 09/23 0.6, 07/27 0.7 Continue with yearly follow-up PVR [facility] Medical History High cholesterol Nocturia Frequency of urination and polyuria BPH loc w urin obs/LUTS Rectal pain BPH w/o urinary obs/LUTS Surgical History History of surgery Social History Patient Tobacco Use Status: Never used Tobacco Review of Systems Const Denies chills and Denies fever(s) Card Reports no additional complaints and Denies syncope Resp Denies cough GI Denies abdominal pain and Denies heartburn Reports as per HPI and Denies change in libido Neuro Denies syncope Psych Denies change in libido Endo Denies change in libido Physical Exam Const General: cooperative, healthy appearing, comfortable and no acute distress Orientation/consciousness: patient oriented x3 HEENT Face and sinus: Yes normal facial exam Mouth: moist mucous membranes Neck Neck: Yes normal visual inspection, Yes full ROM and Yes trachea midline Chest Chest palpation & inspection: normal inspection of the chest Resp Effort & Inspection: normal respiratory effort, able to speak in complete sentences and no respiratory distress GI Inspection: Yes normal to inspection Back/Spine/Pelvis Cervical Spine: normal cervical lordosis Thoracic/Lumbar Spine: thoracic and lumbar spine normal to inspection Skin General skin exam: no rashes or lesions noted Neuro General: patient oriented x3, gait normal, tone normal and moves all extremities Extrem General: Yes normal to inspection and Yes capillary refill normal Office Procedures Post Void Residual Post Residual Void Post Void Residual (PVR): 125 56431-Fict Void Residual by ultrasound Results AMB Urinalysis, Automated UA Leukoctes 0 Brad/uL Last Edit by Rossi Vidal [facility] on 03/12/25 10:13 UA Nitrite Negative Last Edit by Rossi Vidal [facility] on 03/12/25 10:13 UA Urobilinogen 0.2 mg/dL Last Edit by Rossi Vidal [facility] on 03/12/25 10:13 UA Protein 0 mg/dL Last Edit by Rossi Vidal [facility] on 03/12/25 10:13 UA pH 6.0 Last Edit by Rossi Vidal [facility] on 03/12/25 10:13 UA Blood 0 Catarino/uL Last Edit by Rossi Vidal [facility] on 03/12/25 10:13 UA Specific Harpster 1.015 Last Edit by Rossi Vidal [facility] on 03/12/25 10:13 UA Ketone Negative Last Edit by Rossi Vidal [facility] on 03/12/25 10:13 UA Bilirubin 0 mg/dL Last Edit by Rossi Vidal [facility] on 03/12/25 10:13 UA Glucose 0 mg/dL Last Edit by Rossi Vidal [facility] on 03/12/25 10:13 Results Reviewed Results Reviewed: Laboratory Last Values Urine pH (Auto) 6.0 03/12/25 10:12 Specific Harpster (Auto) 1.015 03/12/25 10:12 Urine Protein (Auto) 0 mg/dL 03/12/25 10:12 Glucose (UA)(Auto) 0 mg/dL 03/12/25 10:12 Urine Ketones (Auto) Negative 03/12/25 10:12 Urine Blood (Auto) 0 Catarino/uL 03/12/25 10:12 Urine Nitrite (Auto) Negative 03/12/25 10:12 Urine Bilirubin (Auto) 0 mg/dL 03/12/25 10:12 Urine Urobilinogen (Auto) 0.2 mg/dL 03/12/25 10:12 Leukocyte Esterase (Auto) 0 Brad/uL 03/12/25 10:12 Assessment & Plan Assessment & Plan (1) Erectile dysfunction: Code(s): N52.9 - Male erectile dysfunction, unspecified Category: Medical Qualifiers: 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 Qualified Code(s): 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 (2) BPH loc w urin obs/LUTS: Code(s): N40.1 - Benign prostatic hyperplasia with lower urinary tract symptoms Category: Medical Plan Add tadalafil 20 mg on demand Orders: Orders Prostate Specific Antigen 12 Months N40.1 - Benign prostatic hyperplasia with lower urinary tract symptoms AMB Urinalysis Automated Today N13.8 - Other obstructive and reflux uropathy, N40.1 - Benign prostatic hyperplasia with lower urinary tract symptoms AMB Post Void Residual by ultrasound Today N40.1 - Benign prostatic hyperplasia with lower urinary tract symptoms Medications: New tadalafil 60 minutes prior to intended activity [id number] [facility] [place] [id number] Member [id number] 20 mg PO ONCE PRN 30 tabs 1RF sexual activity 30 days 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 While every effort has been made to ensure accuracy choir accompanist errors may have been included. Imaging studies, laboratory and physical exam results were discussed and reviewed in detail. No major barriers to patient understanding were identified. An opportunity to ask questions regarding the treatment plan was provided. All questions were answered. The patient expressed understanding and agreement with the above treatment plan. The patient is aware they should contact our office by phone for worsening of their current condition or the appearance of new urologic symptoms. Compliance is encouraged with any medications and followup testing that is ordered. It is a privilege to participate in the urologic care of your patient. If you have any questions or concerns regarding treatment for the above conditions, or other urologic issues, please do not hesitate to contact me. The office telephone contact is [phone]. 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
== END 2025-03-12 11:00 | disposition home or self-care (01) ==
LOC: HO.HUSH 09:26
PROVIDERS: PCP Internal Medicine; Visit Provider Urology
DX: N52.03 Combined arterial insufficiency and corporo-venous occlusive erectile dysfunction (principal); N40.1 Benign prostatic hyperplasia with lower urinary tract symptoms; N13.8 Other obstructive and reflux uropathy
CPT/HCPCS: 99214

== ENCOUNTER → 2025-03-12 09:26 | Outpatient (BNVA) | payer MEDICARE, BC, SELFPAY | PROVIDERS: PCP Internal Medicine; Visit Provider Urology | DX: N40.1 Benign prostatic hyperplasia with lower urinary tract symptoms (principal); N13.8 Other obstructive and reflux uropathy; N52.03 Combined arterial insufficiency and corporo-venous occlusive erectile dysfunction; Z13.9 Encounter for screening, unspecified | CPT/HCPCS: 51798; 81003; 99212 ==